=== PATIENT | male | born 1950 | race Caucasian/White ===

== ENCOUNTER 2017-08-18 10:45 | Day surgery (SDC) | payer MEDICARE ==
[~2017-08-18] VITALS: Ht 182.9 cm; Wt 90.9 kg
[2017-08-18 11:57] VITALS: BP 101/63
[2017-08-18] MEDS ORDERED: ASPI-496 PO (12:28)
[2017-08-18] MEDS ORDERED: MELO15TA6 PO (12:28)
[2017-08-18] MEDS ORDERED: SERT100T PO (12:28)
[2017-08-18] MEDS ORDERED: ATOR40TA78 PO (12:28)
[2017-08-18] MEDS ORDERED: MAGN400T36 PO (12:28)
[2017-08-18] MEDS ORDERED: METO25TA2 PO (12:28)
[2017-08-18] MEDS ORDERED: RANO500T2 PO (12:28)
[2017-08-18] MEDS ORDERED: VERAPAMIL 2.5 MG/ML, 2ML ONE (12:56)
[2017-08-18] MEDS ORDERED: FENTANYL PF 100 MCG/2ML ONE (12:56)
[2017-08-18] MEDS ORDERED: MIDAZOLAM 1 MG/ML, 5ML ONE (12:56)
[2017-08-18] MEDS ORDERED: LIDOCAINE 2%, 20ML ONE (12:57)
[2017-08-18] MEDS ORDERED: BIVALIRUDIN 250 MG ONE (12:57)
[2017-08-18] MEDS ORDERED: HEPARIN 1,000 UNITS/ML, 10ML ONE (12:57)
[2017-08-18] MEDS ORDERED: TICAGRELOR 90 MG TABLET ONE (12:58)
[2017-08-18] MEDS ORDERED: PRASUGREL 10 MG TABLET ONE (12:59)
== END 2017-08-18 16:39 | disposition home or self-care (01) ==
LOC: CACL 10:45 → EDBD 12:45 → CACL 16:39
PROVIDERS: ATTEND Internal Medicine Cardiovascular Disease
DX: I25.10 Atherosclerotic heart disease of native coronary artery without angina pectoris (principal); E78.5 Hyperlipidemia, unspecified; M48.061 Spinal stenosis, lumbar region without neurogenic claudication; M47.896 Other spondylosis, lumbar region
CPT/HCPCS: 93458; 99156; C1769; C1894; J0583; J1644; J2250; J3010; J3490; Q9967